=== PATIENT | female | born 1960 | race Caucasian/White ===

== ENCOUNTER 2017-04-02 09:38 | Emergency (ER) | payer MEDICARE ==
[2017-04-02 09:46] VITALS: BP 133/69
[2017-04-02] MEDS ORDERED: Amoxicillin/Clavulanate TAB* 875 MG PO ONE (10:49)
--- NOTE | 2017-04-03 18:28 | ED ---
Progress - Progress Note Progress Note: UCX (-) NEGATIVE STOP ABX. Course/Dx - Diagnoses Provider Diagnoses: Dysuria
--- NOTE | 2017-05-04 10:32 | UC ---
Bandar Carroll Angela, scribed for Henna Rodriguez MD on 04/02/17 at 1039 . Complaint Female HPI - HPI Summary HPI Summary: This pt is a 56 y/o female presenting to [facility] c/o back pain radiating to her abd since 0200 today. Pt also c/o urinary urgency x1 week. Pt denies fever. She notes drinking cranberry juice which alleviated her symptoms but came back last night. Pt has had these symptoms before and notes she was diagnosed with a UTI. Allergies: cefaclor, levaquin, lactose, prednisone, bactrim. Pt has taken Augmentin in the past. - History Of Current Complaint Chief Complaint: UCGU Stated Complaint: UTI Time Seen by Provider: 04/02/17 10:13 Hx Obtained From: Patient Onset/Duration: Lasting Hours Timing: Lasting Hours Pain Intensity: 10 Pain Scale Used: 0-10 Numeric Associated Signs And Symptoms: Positive: Back Pain. Negative: Fever, Vaginal Bleeding/Discharge, Vaginal Discharge - Allergies/Home Medications Allergies/Adverse Reactions: Allergies Allergy/AdvReac Type Severity Reaction Status Date / Time Cefaclor [From Ceclor] Allergy Intermediate GI Upset Verified 11/14/16 13:03 Levofloxacin [From Levaquin] Allergy Intermediate GI Upset Verified 11/14/16 13: 03 Lactose Allergy Unknown GI Upset Verified 11/14/16 13:03 Prednisone Allergy Unknown GI/ ITCHING Verified 11/14/16 13:03 Sulfamethoxazole Allergy Unknown GI AND Verified 11/14/16 13:03 w/Trimethoprim HIVES [From Bactrim] CT DYE Allergy Unknown HIVES AND Uncoded 11/14/16 13:03 ITCHING PLASTIC TAPE* Allergy Unknown MARQUIS SKIN Uncoded 11/14/16 13:03 Home Medications: Home Medications Oxymorphone HCl [Opana] 10 mg PO 04/02/17 [History] PMH/Surg Hx/FS Hx/Imm Hx Other Endocrine History: DENIES: diabetes Other Cardiovascular History: DENIES: hypertension - Surgical History Surgical History: Yes Surgery Procedure, Year, and Place: 2002 & 2004 Left ankle pin placement then removal. 2006 disk fusion, neck/banked bone and plating. 2007 Gallbladder out. 04/25 Lt shoulder sugery; plate and screws - 3 TOTAL SURGERIES. 1994 breast implants. HYSTERECTOMY - Family History Known Family History: Positive: Cardiac Disease - [place] - Social History Alcohol Use: Occasionally Substance Use Type: None Smoking Status (MU): Light Every Day Tobacco Smoker Type: Cigarettes Review of Systems Constitutional: Negative Skin: Negative Eyes: Negative ENT: Negative Respiratory: Negative Cardiovascular: Negative Gastrointestinal: Abdominal Pain Genitourinary: Frequency, Urgency Motor: Negative Neurovascular: Negative Musculoskeletal: Other: - back pain Neurological: Negative Psychological: Negative Is Patient Immunocompromised?: No All Other Systems Reviewed And Are Negative: Yes Physical Exam Triage Information Reviewed: Yes Appearance: Well-Nourished Vital Signs: Initial Vital Signs Temp 97.1 F 04/02/17 09:43 Pulse 54 04/02/17 09:43 Resp 18 04/02/17 09:43 BP 133/69 04/02/17 09:43 Pulse Ox 100 04/02/17 09:43 Vital Signs Reviewed: Yes Eye Exam: Normal - g Eyes: Positive: Conjunctiva Clear - grossly normal ENT Exam: Normal - grossly normal Neck exam: Normal - no c/o Respiratory Exam: Normal Respiratory: Positive: Chest non-tender, Normal breath sounds, No respiratory distress, No accessory muscle use, Wheezing - some wheezes Cardiovascular Exam: Normal Cardiovascular: Positive: Other: - heart rate regular, good general skin color, good capillary refill Abdominal Exam: Other - see hpi. mild lower abd tenderness. no r/g. no cvat subj bladder discomfort Abdomen Description: Positive: No Organomegaly, Soft Bowel Sounds: Positive: Present Musculoskeletal Exam: Normal Musculoskeletal: Positive: Strength Intact - moves all 4 ext's Neurological Exam: Normal - nonfocal, grossly intact Psychological Exam: Normal - conversing easily and appropriately Skin Exam: Normal - no visible or reported rash Complaint Female Dx - Course Course Of Treatment: Urine dip shows trace blood. d/w pt. reviewed urined dip with pt. Reviewed coa / tx plan. - Differential Dx/Diagnosis Provider Diagnoses: Urinarty tract infection. Hematuria. Abdominal pain Discharge - Discharge Plan Condition: Stable Disposition: HOME Prescriptions: Amoxicillin/Clavulanate TAB* [Augmentin TAB 875*] 875 mg PO BID #19 tab Phenazopyridine 200 mg (NF) [Pyridium 200 MG tab *] 200 mg PO TID PRN #12 tab PRN Reason: Pain Patient Education Materials: Urinary Tract Infection in Women (ED), Hematuria ( ED), Abdominal Pain (ED) Referrals: Uri Smith MD [Primary Care Provider] - Additional Instructions: Please follow up with your primary care provider, Dr. Smith, within 2 weeks. If your symptoms worsen or encounter new problems please seek medical attention in the Emergency Room. The documentation as recorded by the Bandar goode Angela accurately reflects the service I personally performed and the decisions made by me, Henna Rodriguez MD.
== END 2017-04-02 11:05 | disposition home or self-care (01) ==
LOC: UCEAST 09:38
DX: N39.0 Urinary tract infection, site not specified (principal); R31.9 Hematuria, unspecified; R10.30 Lower abdominal pain, unspecified; Z90.710 Acquired absence of both cervix and uterus; Z90.49 Acquired absence of other specified parts of digestive tract; Z88.2 Allergy status to sulfonamides; Z88.1 Allergy status to other antibiotic agents; Z91.041 Radiographic dye allergy status; F17.210 Nicotine dependence, cigarettes, uncomplicated
CPT/HCPCS: 81003; 87086; 99212; A9270-GY; G0463

== ENCOUNTER 2017-04-04 16:06 | Emergency (ER) | payer MEDICARE ==
[2017-04-04] MEDS ORDERED: Ondansetron INJ* 2 MG/ML VIAL IV ONE (18:39)
[2017-04-04] MEDS ORDERED: NS 0.9% 1000 ML* 1,000 ML IV ONE (18:39)
[2017-04-04] MEDS ORDERED: HYDROmorphone INJ* 1 MG/ML CARPUJECT SYRINGE IV SLOW PU ONE (18:39)
[2017-04-04 18:48] LABS: Hematocrit 42 % (35-47); Hemoglobin 14.5 g/dl (12.0-16.0); Mean Corpuscular HGB Conc 34 g/dl (31-36); Mean Corpuscular Hemoglobin 31 pg (27-31); Mean Corpuscular Volume 90 fL (80-97); Mean Platelet Volume 9 um3 (7.4-10.4); Red Blood Count 4.69 10^6/ul (4.0-5.4); Red Cell Distribution Width 13 % (10.5-15); White Blood Count 8.2 10^3/ul (3.5-10.8)
[2017-04-04 18:51] LABS: Urine Bilirubin Negative (Negative); Urine Glucose Negative (Negative); Urine Nitrite Negative (Negative)
[2017-04-04 19:07] LABS: ALT 41 U/L (7-52); AST 20 U/L (13-39); Albumin 3.7 g/dL (3.2-5.2); Alkaline Phosphatase 84 U/L (34-104); Anion Gap 4 mmol/L (2-11); Blood Urea Nitrogen 9 mg/dL (6-24); C Reactive Protein < 1.00 mg/L (< 5.00); CO2 Carbon Dioxide 28 mmol/L (22-32); Chloride 109 mmol/L (101-111); EGFR Non-African American 88.7 (>60); Globulin 2.1 g/dL (2-4); Glucose 70 mg/dL (70-100); Lipase 27 U/L (11.0-82.0); Potassium 3.6 mmol/L (3.5-5.0); Sodium 141 mmol/L (133-145); Total Protein 5.8 g/dL (6.4-8.9)
[2017-04-04] MEDS ORDERED: HYDROmorphone INJ* 1 MG/ML CARPUJECT SYRINGE IV ONE ×2 (19:35→21:10)
--- NOTE | 2017-04-04 21:02 | ED ---
Janey Carroll Nilda, scribed for Sanaz Davis MD on 04/04/17 at 1835 . GI/ HPI - HPI Summary HPI Summary: This patient is a 56 year old F presenting to [facility] with a chief complaint of urinary frequency and vaginal pain that began three days ago. Two days ago patient visited [facility] to check for UTI but cultures revealed no abnormalities. She was prescribed amoxicillin which have not alleviated symptoms. Patient reports chills, lower abd pain, back pain, vomiting (began last night), and diarrhea. She denies burning with urination. The patient rates the pain 10/10 in severity. Symptoms aggravated and alleviated by nothing. - History of Current Complaint Chief Complaint: EDAbdPain Time Seen by Provider: 04/04/17 18:13 Stated Complaint: BLOOD IN URINE,N/V Hx Obtained From: Patient Onset/Duration: Started Days Ago, Still Present Timing: Constant Current Severity: Severe Pain Intensity: 10 Location of Pain: Other - lower abdomen Associated Signs and Symptoms: Positive: Other: Additional Signs & Symptoms: Positive: Other: - Patient reports chills, lower abd pain, back pain, vomiting (began last night), and diarrhea. She denies burning with urination. Aggravating Factor(s): Nothing Alleviating Factor(s): Nothing - Allergy/Home Medications Allergies/Adverse Reactions: Allergies Allergy/AdvReac Type Severity Reaction Status Date / Time Cefaclor [From Ceclor] Allergy Intermediate GI Upset Verified 11/14/16 13:03 Levofloxacin [From Levaquin] Allergy Intermediate GI Upset Verified 11/14/16 13: 03 Lactose Allergy Unknown GI Upset Verified 11/14/16 13:03 Prednisone Allergy Unknown GI/ ITCHING Verified 11/14/16 13:03 Sulfamethoxazole Allergy Unknown GI AND Verified 11/14/16 13:03 w/Trimethoprim HIVES [From Bactrim] CT DYE Allergy Unknown HIVES AND Uncoded 11/14/16 13:03 ITCHING PLASTIC TAPE* Allergy Unknown MARQUIS SKIN Uncoded 11/14/16 13:03 PMH/Surg Hx/FS Hx/Imm Hx Endocrine/Hematology History: Denies: Hx Diabetes, Hx Thyroid Disease, Hx Anemia Cardiovascular History: Denies: Hx Hypertension, Hx Pacemaker/ICD Respiratory History: Denies: Hx Asthma, Hx Chronic Obstructive Pulmonary Disease (COPD) GI History: Denies: Hx Jaundice, Hx Ulcer History: Denies: Hx Renal Disease Musculoskeletal History: Reports: Hx Arthritis, Hx Back Problems, Other Musculoskeletal History - neck fusion Sensory History: Denies: Hx Hearing Aid Psychiatric History: Denies: Hx Panic Disorder, Hx Substance Abuse - Cancer History Hx Chemotherapy: No Hx Radiation Therapy: No - Surgical History Surgery Procedure, Year, and Place: 2002 & 2004 Left ankle pin placement then removal. 2006 disk fusion, neck/banked bone and plating. 2007 Gallbladder out. 04/25 Lt shoulder sugery; plate and screws - 3 TOTAL SURGERIES. 1994 breast implants. HYSTERECTOMY Infectious Disease History: No Infectious Disease History: Denies: Hx Hepatitis, Hx Human Immunodeficiency Virus (HIV), Traveled Outside the US in Last 30 Days - Family History Known Family History: Positive: Cardiac Disease - [place] - Social History Occupation: Employed Full-time Lives: With Family Alcohol Use: Occasionally Substance Use Type: Reports: None Hx Tobacco Use: Yes Smoking Status (MU): Light Every Day Tobacco Smoker Type: Cigarettes Review of Systems Positive: Chills Positive: Abdominal Pain - lower abd pain, Vomiting, Diarrhea Positive: frequency, pain. Negative: burning Positive: Other - back pain All Other Systems Reviewed And Are Negative: Yes Physical Exam Triage Information Reviewed: Yes Vital Signs On Initial Exam: Initial Vitals Temp Pulse Resp BP Pulse Ox 98.3 F 62 18 135/75 95 04/04/17 16:27 04/04/17 16:27 04/04/17 16:27 04/04/17 16:27 04/04/17 16:27 Vital Signs Reviewed: Yes Appearance: Positive: Well-Appearing, No Pain Distress Skin: Positive: Warm, Skin Color Reflects Adequate Perfusion, Dry Eyes: Positive: EOMI, ZAYNAB ENT: Positive: Pharynx normal, TMs normal Neck: Positive: Supple, Nontender Respiratory/Lung Sounds: Positive: Clear to Auscultation, Breath Sounds Present. Negative: Rales, Rhonchi, Wheezes Cardiovascular: Positive: RRR, Other - negative gallop. Negative: Murmur, Rub Abdomen Description: Positive: Soft, Other: - subrapubic and RLQ tenderness. Negative: Distended, Guarding Bowel Sounds: Positive: Present Musculoskeletal: Positive: Strength/ROM Intact. Negative: Edema Left, Edema Right Neurological: Positive: Sensory/Motor Intact, Alert, Oriented to Person Place, Time, CN Intact II-III Psychiatric: Positive: Affect/Mood Appropriate Diagnostics - Vital Signs Vital Signs Temp Pulse Resp BP Pulse Ox 04/04/17 16:27 98.3 F 62 18 135/75 95 - Laboratory Lab Results: Lab Results 04/04/17 04/04/17 04/04/17 Range/Units 18:20 18:20 18:20 WBC 8.2 (3.5-10.8) 10^3/ul RBC 4.69 (4.0-5.4) 10^6/ul Hgb 14.5 (12.0-16.0) g/dl Hct 42 (35-47) % MCV 90 (80-97) fL MCH 31 (27-31) pg MCHC 34 (31-36) g/dl RDW 13 (10.5-15) % Plt Count 166 (150-450) 10^3/ul MPV 9 (7.4-10.4) um3 Neut % (Auto) 46.0 (38-83) % Lymph % (Auto) 46.0 (25-47) % Jenkins % (Auto) 6.2 (1-9) % Eos % (Auto) 1.1 (0-6) % Baso % (Auto) 0.7 (0-2) % Absolute Neuts (auto) 3.8 (1.5-7.7) 10^3/ul Absolute Lymphs (auto) 3.8 (1.0-4.8) 10^3/ul Absolute Monos (auto) 0.5 (0-0.8) 10^3/ul Absolute Eos (auto) 0.1 (0-0.6) 10^3/ul Absolute Basos (auto) 0.1 (0-0.2) 10^3/ul Absolute Nucleated RBC 0.01 10^3/ul Nucleated RBC % 0.1 Sodium 141 (133-145) mmol/L Potassium 3.6 (3.5-5.0) mmol/L Chloride 109 (101-111) mmol/L Carbon Dioxide 28 (22-32) mmol/L Anion Gap 4 (2-11) mmol/L BUN 9 (6-24) mg/dL Creatinine 0.69 (0.51-0.95) mg/dL Est GFR ( Amer) 114.0 (>60) Est GFR (Non-Af Amer) 88.7 (>60) BUN/Creatinine Ratio 13.0 (8-20) Glucose 70 (70-100) mg/dL Lactic Acid (0.5-2.0) mmol/L Calcium 9.0 (8.6-10.3) mg/dL Total Bilirubin 0.50 (0.2-1.0) mg/dL AST 20 (13-39) U/L ALT 41 (7-52) U/L Alkaline Phosphatase 84 (34-104) U/L C-Reactive Protein < 1.00 (< 5.00) mg/L Total Protein 5.8 L (6.4-8.9) g/dL Albumin 3.7 (3.2-5.2) g/dL Globulin 2.1 (2-4) g/dL Albumin/Globulin Ratio 1.8 (1-3) Lipase 27 (11.0-82.0) U/L Urine Color Yellow Urine Appearance Clear Urine pH 6.0 (5-9) Ur Specific [place] 1.003 L (1.010-1.030) Urine Protein Negative (Negative) Urine Ketones Negative (Negative) Urine Blood Negative (Negative) Urine Nitrate Negative (Negative) Urine Bilirubin Negative (Negative) Urine Urobilinogen Negative (Negative) Ur Leukocyte Esterase Negative (Negative) Urine Glucose Negative (Negative) 04/04/17 Range/Units 18:20 WBC (3.5-10.8) 10^3/ul RBC (4.0-5.4) 10^6/ul Hgb (12.0-16.0) g/dl Hct (35-47) % MCV (80-97) fL MCH (27-31) pg MCHC (31-36) g/dl RDW (10.5-15) % Plt Count (150-450) 10^3/ul MPV (7.4-10.4) um3 Neut % (Auto) (38-83) % Lymph % (Auto) (25-47) % Jenkins % (Auto) (1-9) % Eos % (Auto) (0-6) % Baso % (Auto) (0-2) % Absolute Neuts (auto) (1.5-7.7) 10^3/ul Absolute Lymphs (auto) (1.0-4.8) 10^3/ul Absolute Monos (auto) (0-0.8) 10^3/ul Absolute Eos (auto) (0-0.6) 10^3/ul Absolute Basos (auto) (0-0.2) 10^3/ul Absolute Nucleated RBC 10^3/ul Nucleated RBC % Sodium (133-145) mmol/L Potassium (3.5-5.0) mmol/L Chloride (101-111) mmol/L Carbon Dioxide (22-32) mmol/L Anion Gap (2-11) mmol/L BUN (6-24) mg/dL Creatinine (0.51-0.95) mg/dL Est GFR ( Amer) (>60) Est GFR (Non-Af Amer) (>60) BUN/Creatinine Ratio (8-20) Glucose (70-100) mg/dL Lactic Acid 0.7 (0.5-2.0) mmol/L Calcium (8.6-10.3) mg/dL Total Bilirubin (0.2-1.0) mg/dL AST (13-39) U/L ALT (7-52) U/L Alkaline Phosphatase (34-104) U/L C-Reactive Protein (< 5.00) mg/L Total Protein (6.4-8.9) g/dL Albumin (3.2-5.2) g/dL Globulin (2-4) g/dL Albumin/Globulin Ratio (1-3) Lipase (11.0-82.0) U/L Urine Color Urine Appearance Urine pH (5-9) Ur Specific [place] (1.010-1.030) Urine Protein (Negative) Urine Ketones (Negative) Urine Blood (Negative) Urine Nitrate (Negative) Urine Bilirubin (Negative) Urine Urobilinogen (Negative) Ur Leukocyte Esterase (Negative) Urine Glucose (Negative) Result Diagrams: 04/04/17 18:20 04/04/17 18:20 Lab Statement: Any lab studies that have been ordered have been reviewed, and results considered in the medical decision making process. GIGU Course/Dx - Course Course Of Treatment: this is a 7y yo female with suprapubic and rlq pain for several days that she thought was a uti, had taken abx for 1-2 days but was called and told her urine was negative. here her labs are normal and she is awaiting a CT of her abdomen. She will be signed out to Dr. Gooden - Diagnoses Provider Diagnoses: Abdominal pain Discharge - Discharge Plan Condition: Stable Disposition: OTHER Discharge Disposition Comment: to be determined The documentation as recorded by the Janey goode Nilda accurately reflects the service I personally performed and the decisions made by me, Sanaz Davis MD.
[2017-04-04 23:52] VITALS: BP 141/70
--- NOTE | 2017-04-05 05:46 | ED ---
Norma Carroll Thomas, scribed for Corwin Gooden on 04/04/17 at 2342 . Progress - Progress Note Progress Note: The patient is a sign out from Dr. Davis at shift change pending CT Abd/Pel CT Abd/Pel. Interpreted by radiologist. Impression: No nephrolithiasis, ureterolithiasis or obstructive uropathy. No bladder calculi. Unremarkable pancreas. Cholecystectomy. No bowel obstruction, colitis, free fluid or free air. Normal appendix. Diverticulosis sigmoid colon without acute diverticulitis. Hysterectomy. Bilateral breast implants with capsular calcifications. ED physician has reviewed this report and agrees. The patient will be discharged home. She is stable. Course/Dx - Diagnoses Provider Diagnoses: Unspecified abdominal pain The documentation as recorded by the Norma goode Thomas accurately reflects the service I personally performed and the decisions made by Berkley cardona Emmanuel.
--- NOTE | 2017-04-05 07:17 | RAD ---
INDICATION: Abdominal, suprapubic and right lower quadrant pain. COMPARISON: Comparison is made with a prior CT of the abdomen and pelvis from April 16, 2013. TECHNIQUE: A CT scan of the abdomen and pelvis was performed without intravenous or oral contrast. Contiguous axial sections were obtained from the lung bases through the symphysis pubis. Images were reconstructed in the coronal and sagittal planes. FINDINGS: There is mild dependent bilateral lower lobe subsegmental atelectasis. No pleural effusion is present. There are bilateral breast implants with capsular calcification in place. The liver and spleen are normal in size without significant focal abnormality on this noncontrast study. The patient is status post cholecystectomy. The pancreas appears to be within normal limits. The adrenal glands and kidneys are normal in size. No renal calculi or hydronephrosis is seen. The aorta is normal in caliber with mild calcific plaque present. No significant enlarged retroperitoneal lymph nodes are seen. The stomach, small and large bowel appear nondistended. The appendix is within normal limits. There is moderate sigmoid diverticulosis without evidence for diverticulitis or colitis. The patient is status post hysterectomy. No free intraperitoneal air or fluid is seen. No significant focal osseous abnormality is seen. IMPRESSION: 1. NO EVIDENCE FOR ACUTE FINDING OR CAUSE FOR THE PATIENT'S ABDOMINAL PAIN. 2. STATUS POST HYSTERECTOMY AND CHOLECYSTECTOMY.
== END 2017-04-05 00:12 ==
LOC: ED 16:06
DX: R10.9 Unspecified abdominal pain (principal)
CPT/HCPCS: 36415; 74176; 80053; 81003; 83605; 83690; 85025; 86140; 96360; 96374; 96375; 96376; 99284; J1170; J2405

== ENCOUNTER 2018-01-01 17:01 | Emergency (ER) | payer MEDICARE ==
[2018-01-01] MEDS ORDERED: Ketorolac INJ* 30 MG/ML 1 ML VIAL IM ONE (18:32)
--- NOTE | 2018-01-01 18:37 | ED ---
Neck Pain - HPI Summary HPI Summary: 57-year-old female presents with neck pain for the past day. She has a history of neck pain. She states that pain is now located around her entire neck while before it was just in the midline. States she almost fell yesterday and she caught herself and she may have moved her neck. She woke up this morning with neck pain. She took her normal pain medication without relief. She has chronic numbness and tingling in her arms that is little bit worse. She denies any weakness. No fevers. She states the pain radiates all down her spine and aggravates her sciatic nerve on left side. She has history of sciatic nerve pain. She denies any saddle anesthesias or loss of bowel or bladder. She has pain going down left leg due to sciatic nerve. - History of Current Complaint Chief Complaint: EDNeckComplaint Stated Complaint: NECK/BACK PAIN Time Seen by Provider: 01/01/18 17:58 Pain Intensity: 7 - Allergies/Home Medications Allergies/Adverse Reactions: Allergies Allergy/AdvReac Type Severity Reaction Status Date / Time cefaclor Allergy GI Upset Verified 01/01/18 21:21 lactose Allergy GI Upset Verified 01/01/18 21:21 levofloxacin Allergy GI Upset Verified 01/01/18 21:21 prednisone Allergy GI Upset Verified 01/01/18 21:21 sulfamethoxazole Allergy Hives Verified 01/01/18 21:21 [From Bactrim] trimethoprim [From Bactrim] Allergy Hives Verified 01/01/18 21:21 CT DYE Allergy Unknown HIVES AND Uncoded 11/14/16 13:03 ITCHING PLASTIC TAPE* Allergy Unknown MARQUIS SKIN Uncoded 11/14/16 13:03 PMH/Surg Hx/FS Hx/Imm Hx Endocrine/Hematology History: Denies: Hx Diabetes, Hx Thyroid Disease, Hx Anemia Cardiovascular History: Denies: Hx Hypertension, Hx Pacemaker/ICD Respiratory History: Denies: Hx Asthma, Hx Chronic Obstructive Pulmonary Disease (COPD) GI History: Denies: Hx Jaundice, Hx Ulcer History: Denies: Hx Renal Disease Musculoskeletal History: Reports: Hx Arthritis, Hx Back Problems, Other Musculoskeletal History - neck fusion Sensory History: Denies: Hx Hearing Aid Psychiatric History: Denies: Hx Panic Disorder, Hx Substance Abuse - Cancer History Hx Chemotherapy: No Hx Radiation Therapy: No - Surgical History Surgery Procedure, Year, and Place: 2002 & 2004 Left ankle pin placement then removal. 2006 disk fusion, neck/banked bone and plating. 2007 Gallbladder out. 04/25 Lt shoulder sugery; plate and screws - 3 TOTAL SURGERIES. 1994 breast implants. HYSTERECTOMY Infectious Disease History: No Infectious Disease History: Denies: Hx Hepatitis, Hx Human Immunodeficiency Virus (HIV), Traveled Outside the [place] in Last 30 Days - Family History Known Family History: Positive: Cardiac Disease - [place] - Social History Alcohol Use: Occasionally Substance Use Type: Reports: None Hx Tobacco Use: Yes Smoking Status (MU): Light Every Day Tobacco Smoker Type: Cigarettes Review of Systems Negative: Fever Negative: Chest Pain Negative: Shortness Of Breath Positive: Myalgia - neck and back pain All Other Systems Reviewed And Are Negative: Yes Physical Exam Triage Information Reviewed: Yes Vital Signs On Initial Exam: Initial Vitals Temp Pulse Resp BP Pulse Ox 98.7 F 85 16 162/91 98 01/01/18 17:03 01/01/18 17:03 01/01/18 17:03 01/01/18 17:03 01/01/18 17:03 Vital Signs Reviewed: Yes Appearance: Positive: Well-Appearing Skin: Positive: Warm, Dry Head/Face: Positive: Normal Head/Face Inspection Eyes: Positive: Normal, Conjunctiva Clear ENT: Positive: Pharynx normal Respiratory/Lung Sounds: Positive: Clear to Auscultation, Breath Sounds Present Cardiovascular: Positive: Normal, RRR Musculoskeletal: Positive: Limited @ - neck, Other - tenderness to entire neck, good strength upper extremties, tenderness entire spine, tenderness SI joint left Neurological: Positive: Sensory/Motor Intact, Reflexes Intact - biceps Psychiatric: Positive: Normal Diagnostics - Vital Signs Vital Signs Temp Pulse Resp BP Pulse Ox 01/01/18 17:03 98.7 F 85 16 162/91 98 - Laboratory Lab Statement: Any lab studies that have been ordered have been reviewed, and results considered in the medical decision making process. - CT neck CT Interpretation: No Acute Changes CT Interpretation Completed By: Radiologist Neck Course/Dx - Course Course Of Treatment: 57-year-old female presents with neck pain for the past day. She has a history of neck pain. She states that pain is now located around her entire neck while before it was just in the midline. States she almost fell yesterday and she caught herself and she may have moved her neck. She woke up this morning with neck pain. She took her normal pain medication without relief. She has chronic numbness and tingling in her arms that is little bit worse. She denies any weakness. No fevers. She states the pain radiates all down her spine and aggravates her sciatic nerve on left side. She has history of sciatic nerve pain. She denies any saddle anesthesias or loss of bowel or bladder. She has pain going down left leg due to sciatic nerve. On exam has tenderness entire neck. Neurovascularly intact. CT shows no acute findings. discussed with patient will have continue normal meds. will have patient follow up with primary. patient understand and agrees with plan. - Diagnoses Differential Dx/HQI/PQRI: Positive: Sprain, Strain, Torticollis Provider Diagnoses: Neck pain Discharge - Sign-Out/Discharge Documenting (check all that apply): Patient Departure - Discharge Plan Condition: Good Disposition: HOME Patient Education Materials: Neck Pain (ED) Referrals: Uri Smith MD [Primary Care Provider] - Additional Instructions: take normal pain medication heat, massage area use neck brace Follow up with primary within 5 days Return to ED if develop any new or worsening symptoms - Billing Disposition and Condition Condition: GOOD Disposition: Home
[2018-01-01] MEDS ORDERED: Morphine VIAL* 4 MG/ML VIAL (1 ml vial) IV ONE ×2 (19:17→21:50)
[2018-01-01] MEDS: Morphine VIAL* 10 MG/ML 1 ML VIAL IM ONE ×2 (21:01→21:39)
[2018-01-01] MEDS: Morphine VIAL* 4 MG/ML VIAL (1 ml vial) IV ONE ×2 (21:04→21:39)
[2018-01-01] MEDS ORDERED: Methocarbamol TAB* 500 MG PO ONE (21:52)
[2018-01-01 22:21] VITALS: BP 152/88
--- NOTE | 2018-01-02 08:02 | RAD ---
HISTORY: neck pain, h/o fusion COMPARISONS: June 18, 2013 TECHNIQUE: Multiple contiguous axial CT scans were obtained of the cervical spine without intravenous contrast, with coronal and sagittal multiplanar reformations. FINDINGS: BRAIN: The visualized brain is unremarkable CENTRAL CANAL: Evaluation of the central canal is limited on CT technique; however, there is no obvious canalicular mass or epidural hemorrhage. ALIGNMENT: There is straightening of the cervical lordosis. VERTEBRAL BODIES: The patient is status post anterior cervical fusion from C4 through C7. There is no appreciable hardware failure or osteolysis. There is anterolateral marginal osteophyte formation at C3-C4. JOINTS: There is mild diffuse uncovertebral and facet osteoarthritis. MUSCULATURE: Unremarkable INTERVERTEBRAL DISCS: Intervertebral graft material is noted at C4-C5, C5-C6, and C6-C7. Intervertebral disc space is still visible at C6-C7. The appearance similar to the 2013 examination. AXIAL IMAGES: C2-C3: There is no osseous neural foraminal narrowing or central canal stenosis. C3-C4: There is no osseous neural foraminal narrowing or central canal stenosis. C4-C5: There is a central posterior osteophyte measuring 0.3 cm in depth. There is no significant neural foraminal narrowing or central canal stenosis. C5-C6: There is no osseous neural foraminal narrowing or central canal stenosis. C6-C7: There is a right paracentral posterior osteophyte measuring 0.2 cm in depth. There is uncovertebral hypertrophy. There is moderate bilateral neuroforaminal narrowing. There is no osseous central canal stenosis. C7-T1: There is no osseous neural foraminal narrowing or central canal stenosis. SOFT TISSUES: There is a 1.8 x 1.8 cm nodule of the left lower thyroid. OTHER: None. IMPRESSION: 1. STATUS POST ANTERIOR CERVICAL FUSION. THERE IS NONUNION/FIBROUS UNION AT C6-C7. 2. DEGENERATIVE DISC DISEASE AND OSTEOARTHRITIS 3. THERE IS MODERATE NEUROFORAMINAL NARROWING AT C6-C7. THERE IS NO SIGNIFICANT OSSEOUS CENTRAL CANAL STENOSIS. 4. 1.8 CM LEFT THYROID NODULE. THE [employer] INCIDENTAL THYROID FINDINGS COMMIT[employer]E RECOMMENDS THYROID ULTRASOUND FOR INCIDENTAL NONSUSPICIOUS THYROID NODULES GREATER THAN 1.5 CM IN SIZE FOR THE PATIENT OVER THE AGE OF 35. LADY Garcia et al (2015) "Managing incidental thyroid nodules detected on imaging: white paper of the ACR Incidental Thyroid Findings Committee", Journal of the [employer], 12:143-150. . R2
== END 2018-01-01 22:13 | disposition home or self-care (01) ==
LOC: ED 17:01
DX: M50.323 Other cervical disc degeneration at C6-C7 level (principal); M47.812 Spondylosis without myelopathy or radiculopathy, cervical region; M54.32 Sciatica, left side; E04.1 Nontoxic single thyroid nodule; F17.210 Nicotine dependence, cigarettes, uncomplicated; Z98.1 Arthrodesis status; Z88.2 Allergy status to sulfonamides; Z88.8 Allergy status to other drugs, medicaments and biological substances; Z88.3 Allergy status to other anti-infective agents
CPT/HCPCS: 72125; 96372; 96374; 99281; A9270-GY; J1885; J2270

== ENCOUNTER 2018-02-05 12:17 | Emergency (ER) | payer MEDICARE ==
[2018-02-05] MEDS ORDERED: Ondansetron INJ* 2 MG/ML VIAL IV ONE (13:21)
[2018-02-05] MEDS ORDERED: Morphine VIAL* 10 MG/ML 1 ML VIAL IV ONE (13:21)
[2018-02-05 13:22] LABS: Hematocrit 44 % (35-47); Hemoglobin 15.2 g/dl (12.0-16.0); Mean Corpuscular HGB Conc 35 g/dl (31-36); Mean Corpuscular Hemoglobin 31 pg (27-31); Mean Corpuscular Volume 89 fL (80-97); Mean Platelet Volume 8.2 um3 (7.4-10.4); Platelet Count 180 10^3/ul (150-450); Red Blood Count 4.96 10^6/ul (4.00-5.40); Red Cell Distribution Width 14 % (10.5-15)
[2018-02-05 13:40] LABS: EGFR Non-African American 86.9 (>60)
[2018-02-05] MEDS: NS 0.9% 1000 ML* 2,000 ML IV ONE (13:40)
[2018-02-05 13:53] LABS: Urine Appearance Clear; Urine Blood Negative (Negative); Urine Color Straw; Urine Ketones Negative (Negative); Urine Protein Negative (Negative); Urine Specific Gravity 1.003 (1.010-1.030); Urine Urobilinogen Negative (Negative)
[2018-02-05] MEDS ORDERED: Al Hydrox/Mg Hydrox/Simet LIQ* 30 ML UDC PO ONE (15:20)
[2018-02-05] MEDS ORDERED: Lidocaine 2% VISCOUS* 15 ML UDC PO ONE (15:20)
--- NOTE | 2018-02-05 16:01 | RAD ---
Indication: Right lower quadrant pain, vomiting. CT of the abdomen and pelvis was performed after oral contrast administration. No IV contrast was given. Coronal and sagittal reconstructed images were obtained. Comparison is made with previous exam dated April 04, 2017. Lung bases demonstrate no pleural fluid, nodules or masses. Heart is of normal size without evidence of pericardial effusion. Liver is normal in size. No focal lesions or intrahepatic ductal dilatation is noted. The patient is status post cholecystectomy. The spleen is normal in size. Pancreas demonstrates no mass or pancreatic duct dilatation. The common duct is not dilated. The spleen is normal in size. No adrenal lesions are noted. The kidneys demonstrate no hydronephrosis in either kidney. No hydroureter is noted. CT of the pelvis demonstrates a normal retrocecal appendix. Small bowel demonstrates no abnormal dilatation. Contrast is noted in the right colon. The patient status post hysterectomy. There is diverticulosis of the sigmoid colon without definite evidence of diverticulitis. The urinary bladder is unremarkable. No hernias are noted. The visualized bony structures are unremarkable. IMPRESSION: Normal appendix. No evidence of bowel obstruction is noted. Patient status post hysterectomy. No evidence of obstructive uropathy is noted. The stomach is nondistended. Overall no significant change is noted since April 04, 2017.
--- NOTE | 2018-02-05 16:02 | ED ---
Abdominal Pain/Female - HPI Summary HPI Summary: The patient is a 57 y/o F presenting to [facility] with a chief complaint of sudden onset diffuse abd pain and bloating starting last week with gradual worsening but does not radiate. Starting two days ago, she began vomiting, and has had intermittent episodes since. She visited her PCP, who prescribed her Pepsid for potential GERD, but she has still since been nauseous. The pain is currently rated 10/10 in severity. The pain is aggravated by nothing and alleviated by nothing. She states she also feels dehydrated, has a loss of sleep (pain keeps her awake at night), decreased appetite (unable to keep food down). She denies fevers, chills, and diarrhea (last BM was this morning and was normal). She has surgical hx of hysterectomy (still has ovaries) and cholecystectomy. She has hx of GI issues, including pancreatitis. She also has chronic back pain for which she takes Percocet and Diazepam. Occasional drinker. - History of Current Complaint Chief Complaint: Daniel Stated Complaint: ABD PAIN,N/V Time Seen by Provider: 02/05/18 12:37 Hx Obtained From: Patient Onset/Duration: Sudden Onset, Lasting Days, Still Present Timing: Days Severity Initially: Moderate Severity Currently: Severe Pain Intensity: 10 Pain Scale Used: 0-10 Numeric Location: Diffuse - across whole abd Radiates: No Character: Dull Aggravating Factor(s): Nothing Alleviating Factor(s): Nothing Associated Signs and Symptoms: Positive: Decreased Appetite, Nausea, Vomiting, Other: - POSITIVE: feels dehydrated, has a loss of sleep (pain keeps her awake at night), decreased appetite (unable to keep food down); NEGATIVE: fevers, chills, and diarrhea (last BM was this morning and was normal) Female Torso: 1 - pain diffuse across abd Allergies/Adverse Reactions: Allergies Allergy/AdvReac Type Severity Reaction Status Date / Time cefaclor Allergy GI Upset Verified 02/05/18 12:35 lactose Allergy GI Upset Verified 02/05/18 12:35 levofloxacin Allergy GI Upset Verified 02/05/18 12:35 prednisone Allergy GI Upset Verified 02/05/18 12:35 sulfamethoxazole Allergy Hives Verified 02/05/18 12:35 [From Bactrim] trimethoprim [From Bactrim] Allergy Hives Verified 02/05/18 12:35 CT DYE Allergy Unknown HIVES AND Uncoded 02/05/18 12:35 ITCHING PLASTIC TAPE* Allergy Unknown MARQUIS SKIN Uncoded 02/05/18 12:35 PMH/Surg Hx/FS Hx/Imm Hx Endocrine/Hematology History: Denies: Hx Diabetes, Hx Thyroid Disease, Hx Anemia Cardiovascular History: Denies: Hx Hypertension, Hx Pacemaker/ICD Respiratory History: Denies: Hx Asthma, Hx Chronic Obstructive Pulmonary Disease (COPD) GI History: Reports: Hx Gastroesophageal Reflux Disease, Other GI Disorders - pancreatitis Denies: Hx Jaundice, Hx Ulcer History: Denies: Hx Renal Disease Musculoskeletal History: Reports: Hx Arthritis, Hx Back Problems, Other Musculoskeletal History - neck fusion Sensory History: Denies: Hx Hearing Aid Psychiatric History: Denies: Hx Panic Disorder, Hx Substance Abuse - Cancer History Hx Chemotherapy: No Hx Radiation Therapy: No - Surgical History Surgery Procedure, Year, and Place: 2002 & 2004 Left ankle pin placement then removal. 2006 disk fusion, neck/banked bone and plating. 2007 Gallbladder out. 04/25 Lt shoulder sugery; plate and screws - 3 TOTAL SURGERIES. 1994 breast implants. HYSTERECTOMY Infectious Disease History: No Infectious Disease History: Denies: Hx Hepatitis, Hx Human Immunodeficiency Virus (HIV), Traveled Outside the [place] in Last 30 Days - Family History Known Family History: Positive: Cardiac Disease - [place] - Social History Alcohol Use: Occasionally Substance Use Type: Reports: None Hx Tobacco Use: Yes Smoking Status (MU): Light Every Day Tobacco Smoker Type: Cigarettes Review of Systems Positive: Other - dehydrated feeling. Negative: Fever, Chills Positive: Abdominal Pain - diffuse abd pain, Vomiting, Nausea, Other - abd bloating, decreased appetite. Negative: Diarrhea All Other Systems Reviewed And Are Negative: Yes Physical Exam - Summary Physical Exam Summary: Constitutional: Well-developed, Well-nourished, Alert. (-) Distressed Skin: Warm, Dry HENT: Normocephalic; Atraumatic Eyes: Conjunctiva normal Neck: Musculoskeletal ROM normal neck. (-) JVD, (-) Stridor, (-) Tracheal deviation Cardio: Rhythm regular, rate normal, Heart sounds normal; Intact distal pulses; The pedal pulses are 2+ and symmetric. Radial pulses are 2+ and symmetric. (-) Murmur Pulmonary/Chest wall: Effort normal. (-) Respiratory distress, (-) Wheezes, (-) Rales Abd: Soft, (-) epigastric tenderness, (+) diffuse tenderness across lower abd, ( -) Distension, (-) Guarding, (-) Rebound Musculoskeletal: (-) Edema Lymph: (-) Cervical adenopathy Neuro: Alert, Oriented x3 Psych: Mood and affect Normal Triage Information Reviewed: Yes Vital Signs On Initial Exam: Initial Vitals Temp Pulse Resp BP Pulse Ox 97.7 F 78 17 173/95 96 02/05/18 12:32 02/05/18 12:32 02/05/18 12:32 02/05/18 12:32 02/05/18 12:32 Vital Signs Reviewed: Yes Diagnostics - Vital Signs Vital Signs Temp Pulse Resp BP Pulse Ox 02/05/18 15:00 58 96 02/05/18 14:42 62 132/79 96 02/05/18 14:12 60 165/84 97 02/05/18 14:00 60 95 02/05/18 13:50 18 02/05/18 13:42 165/88 02/05/18 13:15 153/88 02/05/18 13:00 60 93 02/05/18 12:45 65 159/87 97 02/05/18 12:32 97.7 F 78 17 173/95 96 - Laboratory Lab Results: Lab Results 02/05/18 02/05/18 02/05/18 Range/Units 13:06 13:06 13:32 WBC 8.0 (3.5-10.8) 10^3/ul RBC 4.96 (4.00-5.40) 10^6/ul Hgb 15.2 (12.0-16.0) g/dl Hct 44 (35-47) % MCV 89 (80-97) fL MCH 31 (27-31) pg MCHC 35 (31-36) g/dl RDW 14 (10.5-15) % Plt Count 180 (150-450) 10^3/ul MPV 8.2 (7.4-10.4) um3 Sodium 139 (135-145) mmol/L Potassium 4.0 (3.5-5.0) mmol/L Chloride 107 (101-111) mmol/L Carbon Dioxide 27 (22-32) mmol/L Anion Gap 5 (2-11) mmol/L BUN 11 (6-24) mg/dL Creatinine 0.70 (0.51-0.95) mg/dL Est GFR ( Amer) 105.1 (>60) Est GFR (Non-Af Amer) 86.9 (>60) BUN/Creatinine Ratio 15.7 (8-20) Glucose 95 (70-100) mg/dL Calcium 9.0 (8.6-10.3) mg/dL Total Bilirubin 0.50 (0.2-1.0) mg/dL AST 17 (13-39) U/L ALT 19 (7-52) U/L Alkaline Phosphatase 86 (34-104) U/L Total Protein 6.0 L (6.4-8.9) g/dL Albumin 3.9 (3.2-5.2) g/dL Globulin 2.1 (2-4) g/dL Albumin/Globulin Ratio 1.9 (1-3) Lipase 22 (11.0-82.0) U/L Urine Color Straw Urine Appearance Clear Urine pH 7.0 (5-9) Ur Specific [place] 1.003 L (1.010-1.030) Urine Protein Negative (Negative) Urine Ketones Negative (Negative) Urine Blood Negative (Negative) Urine Nitrate Negative (Negative) Urine Bilirubin Negative (Negative) Urine Urobilinogen Negative (Negative) Ur Leukocyte Esterase Negative (Negative) Urine Glucose Negative (Negative) Result Diagrams: 02/05/18 13:06 02/05/18 13:06 Lab Statement: Any lab studies that have been ordered have been reviewed, and results considered in the medical decision making process. - CT Abd/Pel CT CT Interpretation: No Acute Changes - Normal appendix. No evidence of bowel obstruction is noted. Patient status post hysterectomy. No evidence of obstructive uropathy is noted. The stomach is nondistended. Overall no significant change is noted since April 04, 2017. ED physician has reviewed this report. CT Interpretation Completed By: Radiologist Re-Evaluation - Re-Evaluation First Eval Re-Evaluation Time: 15:20 Change: Worse Comment: Patient states pain is increasing. Second Eval Re-Evaluation Time: 16:40 Change: Improved Comment: Patient states she has pain medication at home. She was supposed to get a lower and upper endoscopy but has not gotten it done because it's too expensive. Her abd is nontender upon examination. She also reports that she has been having hard stool. She will be discharged home. Abdominal Pain Fem Course/Dx - Course Course Of Treatment: The patient is a 57 y/o F presenting to [facility] with a chief complaint of sudden onset diffuse abd pain and bloating starting last week with gradual worsening but does not radiate. Starting two days ago, she began vomiting, and has had intermittent episodes since. She visited her PCP, who prescribed her Pepsid for potential GERD, but she has still since been nauseous. The pain is currently rated 10/10 in severity. The pain is aggravated by nothing and alleviated by nothing. She states she also feels dehydrated, has a loss of sleep (pain keeps her awake at night), decreased appetite (unable to keep food down). She denies fevers, chills, and diarrhea (last BM was this morning and was normal). She has surgical hx of hysterectomy (still has ovaries ) and cholecystectomy. She has hx of GI issues, including pancreatitis. She also has chronic back pain for which she takes Percocet and Diazepam. Occasional drinker. Upon initial examination, pt is tender to palpation in the lower abd. In the ED course, pt was administered nml saline, Oxycodone, Zofran, Morphine, Lidocaine, and Maalox. Lab results show negative findings. Abd/Pel CT reveals negative findings. The patient's abdominal pain is chronic in nature. She states that she was supposed to get an upper and lower endoscopy but has not gotten it done because it's too expensive. She will be diagnosed with lower abdominal pain and constipation. She has pain medications at home that she will take as needed. She will follow up with [facility] in 1-2 days. I discussed with her the need to return to the ED for any new or worsening symptoms. Patient understands and agrees with this plan. - Diagnoses Provider Diagnoses: Lower abdominal pain, Constipation Discharge - Sign-Out/Discharge Documenting (check all that apply): Patient Departure - Patient will be discharged home. - Discharge Plan Condition: Stable Disposition: HOME Patient Education Materials: Constipation (ED), Chronic Abdominal Pain (ED) Referrals: Uri Smith MD [Primary Care Provider] - [facility] [Outside] - 2 Days Additional Instructions: Take medications at home as needed. Follow up with [facility] in 1-2 days. RETURN TO THE EMERGENCY DEPARTMENT FOR ANY NEW OR WORSENING SYMPTOMS. - Billing Disposition and Condition Condition: STABLE Disposition: Home - Attestation Statements Document Initiated by Scribe: Yes Documenting Scribe: Christine Horton Provider For Whom Des is Documenting (Include Credential): Alex Palacio MD Scribe Attestation: Christine Carroll, scribed for Alex Palacio MD on 02/05/18 at 1648. Scribe Documentation Reviewed: Yes Provider Attestation: The documentation as recorded by the Christine goode accurately reflects the service I personally performed and the decisions made by me, Alex Palacio MD
[2018-02-05] MEDS ORDERED: oxyCODONE TAB* 5 MG TAB PO ONE (16:31)
[2018-02-05 17:10] VITALS: BP 157/93
== END 2018-02-05 17:11 | disposition home or self-care (01) ==
LOC: ED 12:17
DX: K59.00 Constipation, unspecified (principal); R10.9 Unspecified abdominal pain; R11.2 Nausea with vomiting, unspecified; F17.210 Nicotine dependence, cigarettes, uncomplicated
CPT/HCPCS: 36415; 74176; 80053; 81003; 83690; 85027; 96361; 96374; 96375; 99283; A9270-GY; J2270; J2405

== ENCOUNTER 2019-02-25 13:09 | Emergency (ER) | payer MEDICARE, OTHER ==
[2019-02-25] MEDS ORDERED: NS 0.9% 1000 ML** 1,000 ML IV ONE (16:13)
[2019-02-25] MEDS ORDERED: Acetaminophen TAB* 325 MG PO ONE (16:13)
[2019-02-25] MEDS ORDERED: Ondansetron INJ* 2 MG/ML VIAL IV ONE (16:13)
--- NOTE | 2019-02-25 16:26 | ED ---
Complex/Multi-Sys Presentation - HPI Summary HPI Summary: Patient is a 58-year-old female who presents emergency department with vague complaints of fatigue, headache, urinary frequency. Shortness of breath noted to be complaints in the triage note patient denies shortness of breath or cough to me. She denies chest pain, abdominal pain, vomiting or diarrhea. Patient does note nausea with decreased appetite and states she has not drank or ate much the last few days. Patient notes she was recently diagnosed with a UTI by her family doctor and placed on Macrobid. Patient believes that she is having adverse reaction to Macrobid giving her symptoms today. Patient has numerous drug allergies. No associate symptoms of rash or swelling. Patient notes she is still having urinary frequency. Symptoms are moderate in severity. No current modifying factors. - History Of Current Complaint Chief Complaint: EDGeneral Time Seen by Provider: 02/25/19 15:32 Hx Obtained From: Patient - Allergies/Home Medications Allergies/Adverse Reactions: Allergies Allergy/AdvReac Type Severity Reaction Status Date / Time benzonatate Allergy Unknown Verified 02/10/19 11:13 Reaction Details cefaclor Allergy GI Upset Verified 02/10/19 11:13 lactose Allergy GI Upset Verified 02/10/19 11:13 levofloxacin Allergy GI Upset Verified 02/10/19 11:13 prednisone Allergy GI Upset Verified 02/10/19 11:13 Sulfa (Sulfonamide Allergy Unknown Verified 02/10/19 11:13 Antibiotics) Reaction Details sulfamethoxazole Allergy Hives Verified 02/10/19 11:13 [From Bactrim] trimethoprim [From Bactrim] Allergy Hives Verified 02/10/19 11:13 baclofen AdvReac GI Upset Verified 02/10/19 11:13 CT DYE Allergy Unknown HIVES AND Uncoded 02/10/19 11:13 ITCHING PLASTIC TAPE* Allergy Unknown MARQUIS SKIN Uncoded 02/10/19 11:13 lactose intolerance AdvReac Unknown Uncoded 02/10/19 11:13 Reaction Details Home Medications: Home Medications Cyclobenzaprine TAB* [Flexeril 10 MG TAB*] 10 mg PO TID PRN 02/25/19 [History Confirmed 02/25/19] Fluconazole 150 MG TAB* [Diflucan 150 MG TAB*] 150 mg PO ONCE 02/25/19 [History Confirmed 02/25/19] L.acidoph,Paracasei, B.lactis [Probiotic] 1 each PO DAILY 02/25/19 [History Confirmed 02/25/19] Nitrofurantoin Monohyd/M-Cryst [Macrobid 100 mg Capsule] 100 mg PO BID 02/25/19 [History Confirmed 02/25/19] Oxymorphone (NF) [Opana (NF)] 10 mg PO BID 02/25/19 [History Confirmed 02/25/19] PMH/Surg Hx/FS Hx/Imm Hx Previously Healthy: Yes Endocrine/Hematology History: Denies: Hx Diabetes, Hx Thyroid Disease, Hx Anemia Cardiovascular History: Denies: Hx Hypertension, Hx Pacemaker/ICD Respiratory History: Denies: Hx Asthma, Hx Chronic Obstructive Pulmonary Disease (COPD) GI History: Reports: Hx Gastroesophageal Reflux Disease, Other GI Disorders - pancreatitis Denies: Hx Jaundice, Hx Ulcer History: Denies: Hx Renal Disease Musculoskeletal History: Reports: Hx Arthritis, Hx Back Problems, Other Musculoskeletal History - neck fusion Sensory History: Denies: Hx Hearing Aid Psychiatric History: Denies: Hx Panic Disorder, Hx Substance Abuse - Cancer History Hx Chemotherapy: No Hx Radiation Therapy: No - Surgical History Surgery Procedure, Year, and Place: 2002 & 2004 Left ankle pin placement then removal. 2006 disk fusion, neck/banked bone and plating. 2007 Gallbladder out. 04/25 Lt shoulder sugery; plate and screws - 3 TOTAL SURGERIES. 1994 breast implants. HYSTERECTOMY Infectious Disease History: No Infectious Disease History: Denies: Hx Hepatitis, Hx Human Immunodeficiency Virus (HIV), Traveled Outside the [place] in Last 30 Days - Family History Known Family History: Positive: Cardiac Disease - [place], Non-Contributory - Social History Occupation: Disabled Lives: With Family Alcohol Use: Occasionally Substance Use Type: Reports: None Hx Tobacco Use: Yes Smoking Status (MU): Light Every Day Tobacco Smoker Type: Cigarettes Review of Systems Positive: Fever, Chills Eyes: Negative ENT: Negative Cardiovascular: Negative Negative: Palpitations, Chest Pain Respiratory: Negative Negative: Shortness Of Breath, Cough Positive: Nausea. Negative: Abdominal Pain, Vomiting, Diarrhea Positive: dysuria, frequency. Negative: flank pain Musculoskeletal: Negative Skin: Negative Negative: Rash Positive: Headache. Negative: Weakness, Paresthesia, Numbness All Other Systems Reviewed And Are Negative: Yes Physical Exam Triage Information Reviewed: Yes Vital Signs On Initial Exam: Initial Vitals Temp Pulse Resp BP Pulse Ox 98.2 F 77 18 166/97 99 02/25/19 13:12 02/25/19 13:12 02/25/19 13:12 02/25/19 13:12 02/25/19 13:12 Vital Signs Reviewed: Yes Appearance: Positive: Well-Appearing - Pt. lying in bed in NAD. Skin: Positive: Warm, Dry Head/Face: Positive: Normal Head/Face Inspection Eyes: Positive: Normal, EOMI, ZAYNAB ENT: Positive: Pharynx normal, TMs normal Neck: Positive: Supple, Nontender. Negative: Nuchal Rigidity Respiratory/Lung Sounds: Positive: Clear to Auscultation, Breath Sounds Present Cardiovascular: Positive: Normal, RRR Abdomen Description: Positive: Nontender, Soft. Negative: CVA Tenderness (R), CVA Tenderness (L) Musculoskeletal: Positive: Normal, Strength/ROM Intact Neurological: Positive: Normal, CN Intact II-III Psychiatric: Positive: Affect/Mood Appropriate Diagnostics - Vital Signs Vital Signs Temp Pulse Resp BP Pulse Ox 02/25/19 15:30 58 18 172/106 98 02/25/19 15:29 61 23 98 02/25/19 15:00 97.6 F 65 18 125/79 98 02/25/19 13:12 98.2 F 77 18 166/97 99 - Laboratory Result Diagrams: 02/25/19 16:24 02/25/19 16:24 Lab Statement: Any lab studies that have been ordered have been reviewed, and results considered in the medical decision making process. Complex Multi-Symp Course/Dx Course Of Treatment: Patient presenting with the above complaints. She states afebrile and well appearing. Exam is unremarkable. Patient given IV fluids and Zofran and Tylenol for headache. Basic labs and urinalysis rechecked and are all unremarkable. On reexamination patient is feeling better and is tolerating by mouth fluids. We'll have her follow up with family doctor for further evaluation if symptoms persist. Return to the ER if symptoms change or worsen. Patient understands and agrees with plan. - Diagnoses Provider Diagnoses: Fatigue, Cephalgia Discharge ED - Sign-Out/Discharge Documenting (check all that apply): Patient Departure Patient Received Moderate/Deep Sedation with Procedure: No - Discharge Plan Condition: Improved Disposition: HOME Referrals: Uri Smith MD [Primary Care Provider] - Additional Instructions: Schedule a follow up appointment with your PCP in 2-3 days for recheck Increase fluids and rest Return to ER if symptoms change or worsen - Billing Disposition and Condition Condition: IMPROVED Disposition: Home - Attestation Statements Provider Attestation: I was available for consult. This patient was seen by the [facility]. The patient was not presented to, seen by, or examined by me. -Sasha
[2019-02-25 16:34] LABS: ABS Eosinophils 0.1 10^3/ul (0-0.6); ABS Lymphocytes 3.1 10^3/ul (1.0-4.8); ABS Monocytes 0.5 10^3/ul (0-0.8); ABS Neutrophils 4.2 10^3/ul (1.5-7.7); Eosinophil % 1.5 %; Hematocrit 46 % (35-47); Hemoglobin 15.9 g/dL (12.0-16.0); Lymphocyte % 38.7 %; Mean Corpuscular HGB Conc 35 g/dL (31-36); Mean Corpuscular Hemoglobin 31 pg (27-31); Mean Corpuscular Volume 90 fL (80-97); Mean Platelet Volume 8.4 fL (7.4-10.4); Nucleated Red Blood Cells % 0.1; Platelet Count 190 10^3/uL (150-450); Red Blood Count 5.14 10^6 /uL (3.70-4.87); Red Cell Distribution Width 14 % (10-15)
[2019-02-25 16:56] LABS: ALT 26 U/L (7-52); AST 19 U/L (13-39); Albumin 4.2 g/dL (3.2-5.2); Albumin/Globulin Ratio 2.3 (1-3); Alkaline Phosphatase 97 U/L (34-104); Anion Gap 6 mmol/L (2-11); BUN/Creatinine Ratio 11.5 (8-20); Blood Urea Nitrogen 7 mg/dL (6-24); C Reactive Protein < 1.00 mg/L (<8.01); CO2 Carbon Dioxide 28 mmol/L (22-32); Calcium 9.3 mg/dL (8.6-10.3); Chloride 109 mmol/L (101-111); EGFR African American 122.8 (>60); EGFR Non-African American 101.5 (>60); Globulin 1.8 g/dL (2-4); Glucose 96 mg/dL (70-100); Magnesium 2.4 mg/dL (1.9-2.7); Sodium 143 mmol/L (135-145)
[2019-02-25 16:57] LABS: Urine Appearance Cloudy; Urine Bilirubin Negative (Negative); Urine Blood Negative (Negative); Urine Color Yellow; Urine Glucose Negative (Negative); Urine Ketones Negative (Negative); Urine Nitrite Negative (Negative); Urine Protein Negative (Negative); Urine Specific Gravity 1.013 (1.010-1.030); Urine Urobilinogen Negative (Negative)
[2019-02-25 17:50] VITALS: BP 148/74
== END 2019-02-25 17:51 | disposition home or self-care (01) ==
LOC: ED 13:09
DX: R53.83 Other fatigue (principal); R51 Headache; K21.9 Gastro-esophageal reflux disease without esophagitis; F17.210 Nicotine dependence, cigarettes, uncomplicated; Z90.710 Acquired absence of both cervix and uterus; Z88.1 Allergy status to other antibiotic agents; Z91.041 Radiographic dye allergy status; Z88.2 Allergy status to sulfonamides; Z88.8 Allergy status to other drugs, medicaments and biological substances; Z91.048 Other nonmedicinal substance allergy status
CPT/HCPCS: 36415; 80053; 81003; 83735; 85025; 86140; 96361; 96374; 99282; A9270-GY; J2405

== ENCOUNTER 2022-04-05 11:56 | Observation (INO) ==
[2022-04-05 12:22] LABS: ABS Monocytes 0.3 10^3/ul (0-0.8); ABS Neutrophils 4.6 10^3/ul (1.5-7.7); Eosinophil % 0.5 %; Hematocrit 49 % (35-47); Hemoglobin 16.2 g/dL (12.0-16.0); Lymphocyte % 28.9 %; Mean Corpuscular HGB Conc 33 g/dL (31-36); Mean Corpuscular Hemoglobin 31 pg (27-31); Mean Corpuscular Volume 94 fL (80-97); Mean Platelet Volume 7.9 fL (7.4-10.4); Nucleated Red Blood Cells % 0.1; Platelet Count 183 10^3/uL (150-450); Red Blood Count 5.26 10^6 /uL (3.70-4.87); Red Cell Distribution Width 14 % (10-15); White Blood Count 7.1 10^3/uL (3.5-10.8)
[2022-04-05 12:30] LABS: INR 0.99 (0.89-1.11)
[2022-04-05] MEDS ORDERED: NS 0.9% 1000 ml BAG 1,000 ML IV ONE ×2 (12:54→15:15)
[2022-04-05] MEDS ORDERED: Ondansetron 4 mg VIAL 2 MG/ML 2 ml VIAL IV ONE ×2 (12:54→15:15)
[2022-04-05] MEDS ORDERED: Morphine 10 MG/ML VIAL (1 ml) IV ONE (12:54)
[2022-04-05 13:28] LABS: Albumin 4.4 g/dL (3.2-5.2); Albumin/Globulin Ratio 2.4 (1-3); Calcium 9.5 mg/dL (8.6-10.3); Globulin 1.8 g/dL (2-4); Potassium 4.5 mmol/L (3.5-5.0); Total Bilirubin 0.9 mg/dL (0.2-1.0); Total Protein 6.2 g/dL (6.4-8.9); eGFR CKD-EPI 96.3 (>60)
[2022-04-05 14:03] LABS: High Sensitivity Troponin 1 Hr < 3 pg/mL (<15)
[2022-04-05 14:18] LABS: C Reactive Protein < 1.00 mg/L (<8.01); Lipase 20 U/L (11.0-82.0)
[2022-04-05] MEDS ORDERED: oxyCODONE/Acetamin 5/325 mg TAB PO ONE (16:43)
[2022-04-05] MEDS ORDERED: oxyCODONE/Acetamin 10/325(NF) TAB PO PRN (18:12)
[2022-04-05] MEDS: Nicotine PATCH 14 MG/24 HR PATCH TRANSDERM SCH (18:39)
[2022-04-05] MEDS ORDERED: oxyCODONE/Acetamin 5/325 mg TAB PO PRN (18:58)
[2022-04-06] MEDS ORDERED: Ondansetron 4 mg VIAL 2 MG/ML 2 ml VIAL IV PRN ×2 (02:05→06:04)
[2022-04-06] MEDS ORDERED: Morphine 2 MG/ML SYRINGE IV ONE (06:06)
[2022-04-06 06:38] LABS: ABS Eosinophils 0.1 10^3/ul (0-0.6); ABS Lymphocytes 2.2 10^3/ul (1.0-4.8); ABS Monocytes 0.3 10^3/ul (0-0.8); ABS Neutrophils 2.2 10^3/ul (1.5-7.7); Eosinophil % 1.4 %; Hematocrit 39 % (35-47); Hemoglobin 13.3 g/dL (12.0-16.0); Lymphocyte % 46.4 %; Mean Corpuscular HGB Conc 34 g/dL (31-36); Mean Corpuscular Hemoglobin 31 pg (27-31); Mean Corpuscular Volume 93 fL (80-97); Mean Platelet Volume 8.3 fL (7.4-10.4); Platelet Count 147 10^3/uL (150-450); Red Blood Count 4.22 10^6 /uL (3.70-4.87); Red Cell Distribution Width 13 % (10-15); White Blood Count 4.8 10^3/uL (3.5-10.8)
[2022-04-06 07:00] LABS: Urine Appearance Clear; Urine Bilirubin Negative (Negative); Urine Blood Negative (Negative); Urine Color Straw; Urine Glucose Negative (Negative); Urine Ketones Negative (Negative); Urine Nitrite Negative (Negative); Urine Protein Negative (Negative); Urine Specific Gravity 1.006 (1.002-1.030); Urine Urobilinogen Negative (Negative)
[2022-04-06 07:12] LABS: Calcium 8.6 mg/dL (8.6-10.3); Magnesium 2.1 mg/dL (1.9-2.7); Potassium 4.3 mmol/L (3.5-5.0); eGFR CKD-EPI 93.1 (>60)
[2022-04-06] MEDS: Nicotine PATCH 14 MG/24 HR PATCH TRANSDERM SCH (08:42)
[2022-04-06] MEDS ORDERED: Al Hydrox/Mg Hydrox/Simet LIQ 30 ML UDC PO PRN (10:26)
[2022-04-06] MEDS ORDERED: Pancrelipase 5,000 units CAP PO ONE (11:54)
[2022-04-06 15:46] VITALS: BP 137/70
== END 2022-04-06 17:20 | disposition home or self-care (01) ==
LOC: EDHOLD 11:56 → ED 11:56 → SUATTDRO 17:53 → MEDTELE 20:57
PROVIDERS: ADMIT Student in an Organized Health Care Education/Training Program; ATTEND Internal Medicine